=== PATIENT | female | born 1980 | race Hispanic/Latino ===

== ENCOUNTER 2024-09-04 02:11 | Emergency (ER) | payer OTHER ==
[2024-09-04] MEDS ORDERED: MORPHINE 4 MG/ML SYR ONE (02:39)
[2024-09-04] MEDS ORDERED: ONDANSETRON 4 MG/2 ML VIAL ONE (02:39)
[2024-09-04] MEDS ORDERED: KETOROLAC 30 MG/ML INJ ONE (02:39)
[2024-09-04] MEDS ORDERED: droPERidol 5 MG/2 ML VIAL ONE (02:39)
[2024-09-04] MEDS ORDERED: NA CHLORIDE 0.9% 1,000 ML ONE (02:40)
[2024-09-04] MEDS ORDERED: MORPHINE 2 MG/ML SYR ONE (02:40)
[2024-09-04 03:06] LABS: Absolute Basophils 0.1 K/uL (0-0.5); Absolute Eosinophils 0.1 K/uL (0-0.5); Absolute Lymphocytes (CBC) 1.6 K/uL (0.7-4.9); Absolute Monocytes 0.5 K/uL (0.1-1.3); Absolute Neutrophil 3.5 K/uL (1.8-8.0); Eosinophils % 1.9 % (0-4.4); Hematocrit 34.4 % (36.0-45.0); Hemoglobin 11.5 g/dL (12.0-15.0); Lymphocytes % 27.5 % (15.3-44.8); MCH 30.3 pg (27.0-35.0); MCHC 33.4 g/dL (32.0-36.0); MCV 90.6 fL (80-100); MPV 8.5 fL (7.6-11.3); Monocytes % 8.6 % (3.3-12.3); Nucleated Red Blood Cells % 0.1 % (0-0); Platelets 318 thou/uL (152-406)
[2024-09-04 03:09] LABS: Specific Gravity 1.027 (1.005-1.030); Sqamous Epithelial <5 /HPF (None Seen); Urine Bacteria None Seen /HPF (<20); Urine Bilirubin NEGATIVE (Negative); Urine Blood 1+ (Negative); Urine Clarity Clear (Clear); Urine Color Light-Yellow (Yellow); Urine Culture Reflex Order NOT NEEDED; Urine Glucose NEGATIVE (Negative); Urine Ketones NEGATIVE (Negative); Urine Microscopic Reflex YN ORDER UMIC; Urine Mucus Slight /HPF (None Seen); Urine Nitrite NEGATIVE (Negative); Urine Protein NEGATIVE (Negative); Urine Urobilinogen 1+ (Normal); Urine WBC <5 /HPF (<5)
[2024-09-04 03:10] LABS: Specific Gravity 1.027 (1.005-1.030)
[2024-09-04 03:18] LABS: Albumin 3.5 g/dL (3.4-5.0); Albumin/Globulin Ratio 0.9 (1.1-1.8); Anion Gap 8.5 mEq/L (5.0-15.0); Bilirubin Total 0.2 mg/dL (0.2-1.0); Globulin 3.8 g/dL (2.3-3.5); Potassium 3.5 mEq/L (3.5-5.1); Protein, Total 7.3 g/dL (6.4-8.2)
[2024-09-04 03:55] LABS: PT Prothrombin Time 11.2 SECONDS (10-13.0); Protime INR 0.98
--- NOTE | 2024-09-04 04:11 | RAD REPORT ---
EXAM DESCRIPTION: Pelvis Complete CLINICAL HISTORY: 44 years Female, pelvic pain COMPARISON: CT abdomen pelvis 09/04/2024 TECHNIQUE: Transabdominal images of the pelvis obtained. FINDINGS: Uterus: Measures 9.1 x 4.6 x 5.7 cm. No myometrial mass. Endometrium: Measures up to 1.0 cm in thickness. Right ovary: Measures 2.6 x 3.5 x 3.0 cm. No suspicious sonographic abnormality. Left ovary: Not visualized. Adnexa: No additional abnormality. Free fluid: None identified. Duplex imaging: Blood flow demonstrated to the right ovary. IMPRESSION: Left ovary is not visualized. No suspicious sonographic abnormality of the uterus or right ovary by t ransabdominal imaging. Electronically signed by: Althea Curran MD 09/04/2024 04:06 AM CDT Due to temporary technical issues with the PACS/[employer] reporting system, reports are being signed by the in-house radiologist without review as a courtesy to ensure prompt reporting the interpreting radiologist is fully responsible for the content of the report. Transcribed Date/Time: 09/04/2024 4:11 AM
--- NOTE | 2024-09-04 04:12 | RAD REPORT ---
PROCEDURE: US ABDOMEN LIMITED INDICATION: Abdominal pain. COMPARISON: CT abdomen and pelvis 09/04/2024. TECHNIQUE: Grayscale, color and spectral Doppler ultrasound of the gallbladder was performed. FINDINGS: GALLBLADDER: Gallbladder is incompletely distended. No stones or sludge. No gallbladder wall thickeni ng or pericholecystic fluid. Negative Roldan's sign. COMMON DUCT: The common duct measures 3.3 mm, within normal range. There is no evidence of choledocho lithiasis. LIVER: Visualized portion is unremarkable. OTHER: No ascites. IMPRESSION: Negative gallbladder ultrasound. Electronically signed by: Evi Braun MD 09/04/2024 04:01 AM CDT RP Due to temporary technical issues with the PACS/[employer] reporting system, reports are being signed by the in-house radiologist without review as a courtesy to ensure prompt reporting the interpreting radiologist is fully responsible for the content of the report. Transcribed Date/Time: 09/04/2024 4:11 AM
--- NOTE | 2024-09-04 04:58 | ER ---
Nurse's Notes [facility] Name: Bailey Jeffries Age: 44 yrs Sex: Female : 1980 Arrival Date: 09/04/2024 Time: 02:11 Bed 2 Private MD: Diagnosis: Pelvic and perineal pain;Acute Pelvic Pain in Female Presentation: 09/04 02:30 Chief complaint: Patient states: severe pelvic and abdominal pain, not able to pee. vc1 Coronavirus screen: Client denies travel out of the [place] in the last 14 days. At this time, the client does not indicate any symptoms associated with coronavirus-19. Ebola Screen: Patient negative for fever greater than or equal to 101.5 degrees Fahrenheit, and additional compatible Ebola Virus Disease symptoms Patient denies exposure to infectious person. Patient denies travel to an Ebola-affected area in the 21 days before illness onset. No symptoms or risks identified at this time. Initial Sepsis Screen: Does the patient meet any 2 criteria? No. Patient's initial sepsis screen is negative. Does the patient have a suspected source of infection? No. Patient's initial sepsis screen is negative. Risk Assessment: Do you want to hurt yourself or someone else? Patient reports no desire to harm self or others. Onset of symptoms was September 04, 2024. Care prior to arrival: None. Activity prior to arrival: None. Mechanism of Injury: No Mechanism of Injury. 02:30 Method Of Arrival: Wheelchair vc1 02:30 Acuity: REBECCA 3 vc1 Triage Assessment: 02:39 General: Appears in no apparent distress. uncomfortable, slender, well groomed, well vc1 developed, well nourished, Behavior is calm, cooperative, appropriate for age. Pain: Complains of pain in suprapubic area and groin Pain does not radiate. Pain currently is 10 out of 10 on a pain scale. Quality of pain is described as sharp. EENT: No deficits noted. No signs and/or symptoms were reported regarding the EENT system. Neuro: Level of Consciousness is awake, alert, obeys commands, Oriented to person, place, time, situation, Appropriate for age. Cardiovascular: Capillary refill < 3 seconds Patient's skin is warm and dry. Respiratory: Airway is patent Respiratory effort is even, unlabored, Respiratory pattern is regular, symmetrical. : Reports inability to void, pain in suprapubic area Pain is 10 out of 10 on a pain scale. 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 - Infectious Disease History:: Denies. - Social history:: Smoking status: Patient reports the use of cigarette tobacco products, smokes one-half pack cigarettes per day. Screenin:35 Abuse screen: Denies threats or abuse. Nutritional screening: No deficits noted. vc1 Tuberculosis screening: No symptoms or risk factors identified. 02:52 [facility] ED Fall Risk Assessment (Adult) History of falling in the last 3 months, ha1 including since admission No falls in past 3 months (0 pts) Confusion or Disorientation No (0 pts) Intoxicated or Sedated No (0 pts) Impaired Gait No (0 pts) Mobility Assist Device Used No (0 pt) Altered Elimination No (0 pt) Score/Fall Risk Level 0 - 2 = Low Risk Oriented to surroundings, Maintained a safe environment, Educated pt \T\ family on fall prevention, incl call for assistance when getting out of bed, Hourly rounding (assess needs \T\ fall precautionary measures) done. Assessment: 02:15 General: Appears uncomfortable, Behavior is anxious. Pain: Complains of pain in pelvis ha1 Pain radiates to back Pain currently is 9 out of 10 on a pain scale. Quality of pain is described as pressure, throbbing, Pain began 2 hours ago. Neuro: Level of Consciousness is awake, alert, obeys commands, Oriented to person, place, time, situation. Cardiovascular: Capillary refill < 3 seconds Patient's skin is warm and dry. Respiratory: Airway is patent Respiratory effort is even, unlabored, Respiratory pattern is regular, symmetrical. GI: Abdomen is round non-distended, obese, Reports lower abdominal pain. : Genitalia appear normal. : Reports inability to void. Derm: Skin is pink, warm \T\ dry. Musculoskeletal: Circulation, motion, and sensation intact. Range of motion: intact in all extremities. 03:40 Reassessment: Patient and/or family updated on plan of care and expected duration. Pain ha1 level reassessed. Patient is alert, oriented x 3, equal unlabored respirations, skin warm/dry/pink. Patient denies pain at this time. Patient states feeling better. Patient states symptoms have improved. Vital Signs: 02:30 BP 110 / 70; Pulse 68; Resp 20; Temp 97.9; Pulse Ox 99% ; Weight 64.41 kg; Height 5 ft. vc1 3 in. ; Pain 10/10; 03:47 BP 114 / 67; Pulse 60; Resp 16; Pulse Ox 99% on R/A; dd2 04:45 BP 133 / 68; Pulse 67; Resp 18 S; Pulse Ox 99% on R/A; ha1 02:30 Body Mass Index 25.15 (64.41 kg, 160.02 cm) vc1 02:30 Pain Scale: Adult vc1 ED Course: 02:14 Patient arrived in ED. [id number] 02:15 Ramiro Holbrook MD is Attending Physician. sp4 02:15 Patient has correct armband on for positive identification. Placed in gown. Bed in low ha1 position. Call light in reach. Side rails up X 1. Adult w/ patient. 02:30 Granda cath inserted, using sterile technique, 16 Fr., by ED staff, balloon inflated, ha1 urine specimen collected. 02:34 Triage completed. vc1 02:35 Arm band placed on right wrist. vc1 02:35 Inserted saline lock: 20 gauge in right antecubital area, using aseptic technique. ha1 Blood collected. Flushed with 10 mL NS. 02:36 CBC with Diff Sent. ha1 02:36 CMP Sent. ha1 02:36 Lipase Sent. ha1 02:36 Test, Urine Sent. ha1 02:36 Urinalysis w/ reflexes Sent. ha1 03:17 US Abdomen Limited In Process Unspecified. EDMS 03:18 US Pelvis Complete In Process Unspecified. EDMS 03:37 CT Abd/Pelvis - IV Contrast Only In Process Unspecified. EDMS 03:47 NOE HAIR, RN is Primary Nurse. dd2 05:21 No provider procedures requiring assistance completed. IV discontinued, intact, ha1 bleeding controlled, No redness/swelling at site. Pressure dressing applied. 05:22 Granda cath removed intact, balloon deflated. ha1 05:23 Provided Education on: medication administration . ha1 Administered Medications: 02:49 Drug: morphine IVP or IV 6 mg IVP once over 4 mins Route: IVP; Infused Over: 4 mins; dd2 Site: right antecubital; 03:20 Follow up: Response: No adverse reaction; Marked relief of symptoms; Pain is increased; ha1 RASS: Alert and Calm (0) 02:49 Drug: Ketorolac IVP 30 mg IVP once Route: IVP; Site: right antecubital; dd2 03:20 Follow up: Response: No adverse reaction; Marked relief of symptoms; Pain is decreased ha1 02:49 Drug: Ondansetron IVP 8 mg IVP once; over 2 minutes Route: IVP; Site: right antecubital;dd2 03:20 Follow up: Response: No adverse reaction; Marked relief of symptoms; Nausea is decreasedha1 02:49 Drug: NS 0.9% IV 1000 ml IV at 1 bolus Per protocol; to be given as a bolus over 60 dd2 minutes Route: IV; Rate: 1 bolus; Site: right antecubital; 05:12 Follow up: Response: No adverse reaction; IV Status: Completed infusion ha1 02:49 Drug: Droperidol IVP 1.25 mg IVP once Route: IVP; Site: right antecubital; dd2 03:20 Follow up: Response: No adverse reaction; Pain is decreased ha1 Medication: 05:21 VIS not applicable for this client. ha1 Outcome: 04:57 Discharge ordered by MD. arora 05:21 Discharged to home ambulatory, with family, ha1 05:21 Condition: stable 05:21 Discharge instructions given to patient, family, Instructed on discharge instructions, follow up and referral plans. medication usage, Demonstrated understanding of instructions, follow-up care, medications, Prescriptions given X 2, 05:29 Patient left the ED. ha1 Signatures: Dispatcher [employer] EDMS Radha Garner [id number] Ya Dai RN RN vc1 Alicia Norris RN RN ha1 Ramiro Holbrook MD MD sp4 NOE HAIR RN RN dd2
--- NOTE | 2024-09-04 04:58 | EDPHYS ---
Physician Documentation [facility] Name: Bailey Jeffries Age: 44 yrs Sex: Female : 1980 Arrival Date: 09/04/2024 Time: 02:11 Bed 2 Private MD: ED Physician Ramiro Holbrook HPI: 09/04 02:15 This 44 yrs old Female presents to ER via Unassigned with complaints of sp4 Vaginal Pain, Urinary Retention. 02:32 44-year-old female presents with onset of moderate to severe vaginal and pelvic pain sp4 starting 2 hours prior to arrival. Denied any other symptoms. Reported feeling that she cannot urinate. . 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 - Infectious Disease History:: Denies. - Social history:: Smoking status: Patient reports the use of cigarette tobacco products, smokes one-half pack cigarettes per day. ROS: 02:32 Constitutional: Negative for fever, chills, and weight loss, positive pelvic pain, sp4 positive vaginal pain 02:32 All other systems are negative, Exam: 02:32 Constitutional: This is a well developed, well nourished patient who is awake, alert, sp4 and in no acute distress. Head/Face: Normocephalic, atraumatic. Eyes: Pupils equal round and reactive to light, extra-ocular motions intact. Lids and lashes normal. Conjunctiva and sclera are not injected. Cornea within normal limits. Periorbital areas with no swelling, redness, or edema. ENT: Nares patent. No nasal discharge, no septal abnormalities noted. Tympanic membranes are normal and external auditory canals are clear. Oropharynx with no redness, swelling, or masses, exudates, or evidence of obstruction, uvula midline. Mucous membranes moist. Neck: Trachea midline, no thyromegaly or masses palpated, and no cervical lymphadenopathy. Supple, full range of motion without nuchal rigidity, or vertebral point tenderness. Chest/axilla: Normal chest wall appearance and motion. Nontender with no deformity. No lesions are appreciated. Cardiovascular: Regular rate and rhythm with a normal S1 and S2. No gallops, murmurs, or rubs. Normal PMI, no JVD. No pulse deficits. Respiratory: Lungs have equal breath sounds bilaterally, clear to auscultation and percussion. No rales, rhonchi or wheezes noted. No increased work of breathing, no retractions or nasal flaring. Abdomen/GI: Soft, with normal bowel sounds. No distension or tympany. No guarding or rebound. No evidence of tenderness throughout. Back: No spinal tenderness. No costovertebral tenderness. Pelvic Exam: Normal external genitalia. No discharge, no bleeding, normal external anatomy, normal urethral, Granda catheterization reveals small amount of clear yellow urine, female health care technician present for exam. Granda catheter placed during exam Skin: Warm, dry with normal turgor. Normal color with no rashes, no lesions, and no evidence of cellulitis. MS/ Extremity: Pulses equal, no cyanosis. Neurovascular intact. Full, normal range of motion. Neuro: Awake and alert, GCS 15, oriented to person, place, time, and situation. Cranial nerves II-XII grossly intact. Motor strength 5/5 in all extremities. Sensory grossly intact. Psych: Awake, alert, with orientation to person, place and time. Behavior, mood, and affect are within normal limits Vital Signs: 02:30 BP 110 / 70; Pulse 68; Resp 20; Temp 97.9; Pulse Ox 99% ; Weight 64.41 kg; Height 5 ft. vc1 3 in. ; Pain 10/10; 03:47 BP 114 / 67; Pulse 60; Resp 16; Pulse Ox 99% on R/A; dd2 04:45 BP 133 / 68; Pulse 67; Resp 18 S; Pulse Ox 99% on R/A; ha1 02:30 Body Mass Index 25.15 (64.41 kg, 160.02 cm) vc1 02:30 Pain Scale: Adult vc1 MDM: 02:34 Differential diagnosis: appendicitis, naren infection, cervicitis, dysmenorrhea, sp4 malignancy, nonspecific abdominal pain, ovarian cyst, pelvic inflammatory disease. Data reviewed: vital signs, nurses notes, lab test result(s), radiologic studies, CT scan, ultrasound. Consideration of Admission/Observation Escalation of care including admission/observation considered. 04:28 Medical Screening Exam initiated sp4 04:49 ED course: EXAM DESCRIPTION: Pelvis Complete CLINICAL HISTORY: 44 years Female, pelvic sp4 pain COMPARISON: CT abdomen pelvis 09/04/2024 TECHNIQUE: Transabdominal images of the pelvis obtained. FINDINGS: Uterus: Measures 9.1 x 4.6 x 5.7 cm. No myometrial mass. Endometrium: Measures up to 1.0 cm in thickness. Right ovary: Measures 2.6 x 3.5 x 3.0 cm. No suspicious sonographic abnormality. Left ovary: Not visualized. Adnexa: No additional abnormality. Free fluid: None identified. Duplex imaging: Blood flow demonstrated to the right ovary. IMPRESSION: Left ovary is not visualized. No suspicious sonographic abnormality of the uterus or right ovary by transabdominal imaging. . ED course: PROCEDURE: US ABDOMEN LIMITED INDICATION: Abdominal pain. COMPARISON: CT abdomen and pelvis 09/04/2024. TECHNIQUE: Grayscale, color and spectral Doppler ultrasound of the gallbladder was performed. FINDINGS: GALLBLADDER: Gallbladder is incompletely distended. No stones or sludge. No gallbladder wall thickening or pericholecystic fluid. Negative Roldan's sign. COMMON DUCT: The common duct measures 3.3 mm, within normal range. There is no evidence of choledocholithiasis. LIVER: Visualized portion is unremarkable. OTHER: No ascites. IMPRESSION: Negative gallbladder ultrasound. . ED course: EXAM: CTAbdomen and Pelvis With Intravenous Contrast CLINICAL HISTORY: The patient is 44 years old and is Female; ABD PAIN TECHNIQUE: Axial computed tomography images of the abdomen and pelvis with intravenous contrast. Sagittal and coronal reformatted images were created and reviewed. This CT exam was performed using one or more of the following dose reduction techniques: automated exposure control, adjustment of the mA and/or kV according to patient size, and/or use of iterative reconstruction technique. COMPARISON: No relevant prior studies available. FINDINGS: Lung bases: Unremarkable. No mass. No consolidation. ABDOMEN: Liver: Unremarkable. No mass. Gallbladder and bile ducts: Unremarkable. No calcified stones. No ductal dilation. Pancreas: Unremarkable. No mass. No ductal dilation. Spleen: Unremarkable. No splenomegaly. Adrenals: Unremarkable. No mass. Kidneys and ureters: Unremarkable. No solid mass. No hydronephrosis. Stomach and bowel: Unremarkable. No obstruction. No mucosal thickening. PELVIS: Appendix: No findings to suggest acute appendicitis. Bladder: Granda catheter in the bladder. Reproductive: Corpus luteum cyst in the right ovary. ABDOMEN and PELVIS: Intraperitoneal space: Unremarkable. No free air. No significant fluid collection. Bones/joints: No acute fracture. No dislocation. Soft tissues: Unremarkable. Vasculature: Unremarkable. No abdominal aortic aneurysm. Lymph nodes: Unremarkable. No enlarged lymph nodes. IMPRESSION: No acute finding in the abdomen/pelvis. Electronically signed by: Jose Da Silva MD 09/04/2024 04:46 AM . 09/04 02:32 Order name: CBC with Diff; Complete Time: 04:47 sp4 09/04 02:32 Order name: CMP; Complete Time: 04:47 sp4 09/04 02:32 Order name: Lipase; Complete Time: 04:47 sp4 09/04 02:32 Order name: Test, Urine; Complete Time: 04:47 sp4 09/04 02:32 Order name: Urinalysis w/ reflexes; Complete Time: 04:47 sp4 09/04 02:32 Order name: Type And Screen; Complete Time: 04:47 sp4 09/04 02:32 Order name: PT-INR; Complete Time: 04:47 sp4 09/04 02:32 Order name: CT Abd/Pelvis - IV Contrast Only sp4 09/04 02:32 Order name: US Abdomen Limited sp4 09/04 02:59 Order name: US Pelvis Complete sp4 09/04 02:31 Order name: Granda Leg Bag; Complete Time: 02:36 sp4 09/04 02:32 Order name: IV Saline Lock; Complete Time: 02:36 sp4 09/04 02:32 Order name: Labs collected and sent; Complete Time: 02:36 sp4 Administered Medications: 02:49 Drug: morphine IVP or IV 6 mg IVP once over 4 mins Route: IVP; Infused Over: 4 mins; dd2 Site: right antecubital; 03:20 Follow up: Response: No adverse reaction; Marked relief of symptoms; Pain is increased; ha1 RASS: Alert and Calm (0) 02:49 Drug: Ketorolac IVP 30 mg IVP once Route: IVP; Site: right antecubital; dd2 03:20 Follow up: Response: No adverse reaction; Marked relief of symptoms; Pain is decreased ha1 02:49 Drug: Ondansetron IVP 8 mg IVP once; over 2 minutes Route: IVP; Site: right antecubital;dd2 03:20 Follow up: Response: No adverse reaction; Marked relief of symptoms; Nausea is decreasedha1 02:49 Drug: NS 0.9% IV 1000 ml IV at 1 bolus Per protocol; to be given as a bolus over 60 dd2 minutes Route: IV; Rate: 1 bolus; Site: right antecubital; 05:12 Follow up: Response: No adverse reaction; IV Status: Completed infusion ha1 02:49 Drug: Droperidol IVP 1.25 mg IVP once Route: IVP; Site: right antecubital; dd2 03:20 Follow up: Response: No adverse reaction; Pain is decreased ha1 Disposition: 09/05 01:26 Chart complete. sp4 Disposition Summary: 09/04/24 04:57 Discharge Ordered Notes: Location: Home sp4 Problem: new sp4 Symptoms: have improved sp4 Condition: Stable sp4 Diagnosis - Pelvic and perineal pain sp4 - Acute Pelvic Pain in Female sp4 Followup: sp4 - With: Private Physician - When: As needed - Reason: Discharge Instructions: - Discharge Summary Sheet sp4 - Pelvic Pain, Female sp4 Forms: - Patient Portal Instructions sp4 Prescriptions: - naproxen 500 mg Oral tablet - take 1 tablet ORAL route 2 times per day PRN pain; 50 tablet; Refills: 0, sp4 Product Selection Permitted - methocarbamol 750 mg Oral tablet - take 2 tablets ORAL route every 8 hours for 30 days PRN muscular pain; 60 sp4 tablet; Refills: 0, Product Selection Permitted Signatures: Dispatcher [employer] Ya Rawls RN RN vc1 Ramiro Holbrook MD MD sp4 NOE HAIR RN RN dd2 Alicia Norris RN ha1
--- NOTE | 2024-09-04 05:34 | RAD REPORT ---
EXAM: CT Abdomen and Pelvis With Intravenous Contrast CLINICAL HISTORY: The patient is 44 years old and is Female; ABD PAIN TECHNIQUE: Axial computed tomography images of the abdomen and pelvis with intravenous contrast. Sagittal and coronal reformatted images were created and reviewed. This CT exam was performed using one or more of the following dose reduction techniques: automated exposure control, adjustmen t of the mA and/or kV according to patient size, and/or use of iterative reconstruction technique. COMPARISON: No relevant prior studies available. FINDINGS: Lung bases: Unremarkable. No mass. No consolidation. ABDOMEN: Liver: Unremarkable. No mass. Gallbladder and bile ducts: Unremarkable. No calcified stones. No ductal dilation. Pancreas: Unremarkable. No mass. No ductal dilation. Spleen: Unremarkable. No splenomegaly. Adrenals: Unremarkable. No mass. Kidneys and ureters: Unremarkable. No solid mass. No hydronephrosis. Stomach and bowel: Unremarkable. No obstruction. No mucosal thickening. PELVIS: Appendix: No findings to suggest acute appendicitis. Bladder: Granda catheter in the bladder. Reproductive: Corpus luteum cyst in the right ovary. ABDOMEN and PELVIS: Intraperitoneal space: Unremarkable. No free air. No significant fluid collection. Bones/joints: No acute fracture. No dislocation. Soft tissues: Unremarkable. Vasculature: Unremarkable. No abdominal aortic aneurysm. Lymph nodes: Unremarkable. No enlarged lymph nodes. IMPRESSION: No acute finding in the abdomen/pelvis. Electronically signed by: Jose Da Silva MD 09/04/2024 04:46 AM CDT 8 Due to temporary technical issues with the PACS/[employer] reporting system, reports are being babar d by the in-house radiologist without review as a courtesy to ensure prompt reporting the interpreting radiologist is fully responsible for the content of the report. Transcribed Date/Time: 09/04/2024 5:33 AM
[2024-09-04 05:37] VITALS: TEMP 97.9; O2SAT 99
[2024-09-04 05:39] VITALS: BP 133/68
== END 2024-09-04 05:29 | disposition home or self-care (01) ==
LOC: ER 02:11
DX: R10.2 Pelvic and perineal pain (principal); R33.9 Retention of urine, unspecified; F17.210 Nicotine dependence, cigarettes, uncomplicated
CPT/HCPCS: 96361; 85025; 81001; 36415; 86900; 86850; 81025; 85610; 86901; 83690; 80053; 74177; 76705; 76856; 51702; 96375; 96374; 99285; Q9967; J2270; J2405; J1790; J7030